=== PATIENT | female | born 1995 | race Two or more races ===

== ENCOUNTER 2016-08-02 17:01 | Inpatient (IN) | payer MEDICAID ==
--- NOTE | 2016-08-02 17:09 | EDPHY ---
H & P Stated Complaint: Collapsed right Lung sent by internal medicine Time Seen by Provider: 08/02/16 17:09 - Personal History LMP (Females 10-55): 15-21 Days Ago Current Tetanus/Diphtheria Vaccine: Yes Current Tetanus Diphtheria and Acellular Pertussis (TDAP): Yes - Medical/Surgical History Hx Asthma: Yes - Social History Smoking Status: Never smoked Constitutional: Initial Vital Signs Temperature (C) 36.3 C 08/02/16 17:06 Heart Rate 80 08/02/16 17:06 Respiratory Rate 16 08/02/16 17:06 Blood Pressure 109/77 08/02/16 17:06 O2 Sat (%) 94 08/02/16 17:06 O2 Delivery Mode Room Air O2 (L/minute) 2 Allergies/Adverse Reactions: No Known Allergies Allergy (Verified 08/02/16 17:49) Home Medications: Medication Instructions Recorded Albuterol [Proventil Inhaler HFA 1 - 2 puffs IH Q4H PRN 08/02/16 (*)] Medical Decision Making ED Course/Re-evaluation: CHIEF COMPLAINT: Dyspnea, pneumothorax HISTORY OF PRESENT ILLNESS: The patient is a 21 y/o female arriving at the recommendation of her primary care provider for 1 week of dyspnea and confirmed pneumothorax on x-ray today. She first noticed chest pain and difficulty breathing about one week ago. She developed associated coughing and her PCP placed her on an albuterol inhaler. She returned to her PCP's office today since her symptoms had not improved and a chest x-ray showed large right-sided pneumothorax. She cannot identify any obvious precipitating factors. She denies trauma or illness. She has no history of pneumothoraces and is otherwise healthy. Dr. Lao called the ED prior to patient arrival and stated patient can see the on-call surgeon. REVIEW OF SYSTEMS: A 10 point review of systems was performed and is negative with the exception of the elements mentioned in the history of present illness. PHYSICAL EXAM: HR, BP, O2 Sat, RR. Temp noted General Appearance: Alert, well hydrated, appropriate, and non-toxic appearing. Head: Atraumatic without scalp tenderness or obvious injury Eyes: Pupils equal, round, reactive to light and accommodation, EOMI, no trauma , no injection. Ears: Clear bilaterally, no perforation, normal landmarks Nose: Atraumatic, no rhinorrhea, clear. Throat: There is no erythema or exudates, no lesions, normal tonsils, mucus membranes moist. Neck: Supple,nontender, no lymphadenopathy. Trachea midline. Respiratory: No retractions, no distress, no wheezes, and no accessory muscle use. Decreased breath sounds on right side. Left side clear. Cardiovascular: Regular rate and rhythm, no murmurs, rubs, or gallops. Good capillary refill all extremities. Gastrointestinal: Abdomen is soft, nontender, non-distended, no masses, no rebound, no guarding, no peritoneal signs. Musculoskeletal: Normal active ROM of all extremities, atraumatic. Neurological: Alert, appropriate, and interactive. The patient has normal DTRs and non-focal cranial nerves, motor, sensory, and cerebellar exam. Skin: No rashes, good turgor, no nodules on palpation. Past medical history: Denies Past surgical history: Denies Family history: Noncontributory Social history: PCP: Dr. Bell (not [facility] [place] DIAGNOSTICS/PROCEDURES/CRITICAL CARE TIME: Reviewed chest x-ray from earlier today. She has a large right pneumothorax without evidence of tension. Her trachea is midline. Procedure: Conscious sedation. Indication: Chest tube placement I was asked by Dr. Girard to perform procedural sedation. The patient is an appropriate candidate to tolerate procedural sedation. The patient's vitals signs and mental status are appropriate. The risks, benefits and alternatives of the sedation were discussed with the patient. The patient is ASA classification 1. The patient's Mallampati airway score was 1 and the patient did meet the 3-3-2 airway measurements. A time out was completed. The patient was sedated with 130mg IV Propofol and 100mcg IV Fentanyl. The patient was monitored with continuous pulse oximetry, equipment monitor phototypesetting and end tidal CO2. There were no complications and no significant hypoxemia. I performed the sedation. Dr. Girard performed the procedure. The total time I spent at the bedside during the procedural sedation was 30 minutes. The patient was examined after the procedural sedation and has returned to their pre-sedation baseline with normal vital signs and a normal examination. Study: Chest x-ray Indication: post chest tube Results: Chest x-ray was obtained. The results of the study are good tube placement with lug reexpansion. Radiologist report pending. I viewed the images myself on the PACS system. DIFFERENTIAL DIAGNOSIS: The differential diagnosis for the patient's shortness of breath and hypoxemia included but was not limited to spontaneous pneumothorax, pneumonia, myocardial infarction, acute mountain sickness, high altitude pulmonary edema, congestive heart failure, and pulmonary embolus. MEDICAL DECISION MAKING: This is a well-appearing healthy 21 y/o female presenting with a 1-week history of shortness of breath, cough, and chest pain. She had a confirmed large right pneumothorax on x-ray today and was referred to the ED by Dr. Lao. She is not hypoxemic and is resting comfortably at this time. Surgeon paged. 1718: Consulted with Dr. Girard, surgeon. He will assess patient in the ED, though will wait to place chest tube until after a pending case. 1725: Dr. Girard will admit patient for pneumothorax and place chest tube later tonight. 1840: Prepared patient for conscious sedation preceding chest tube placement. 1850: Conscious sedation performed. Chest tube placed successfully by Dr. Girard. Departure - Departure Disposition: [facility] Inpatient Acute Clinical Impression: Pneumothorax, right Condition: Good Report Scribed for: Misael Cordoba Report Scribed by: Alida Park Date of Report: 08/02/16 Time of Report: 17:12
[2016-08-02] MEDS ORDERED: PROPOFOL 200 MG/20 ML VIAL ONE (17:38)
[2016-08-02] MEDS ORDERED: PROPOFOL/EMULSION 1,000 MG/100 ML BOTTLE IV ONE (18:42)
[2016-08-02] MEDS ORDERED: HYDROmorphONE/DILAUDID 1 MG/ML SYR ONE (19:11)
[2016-08-02] MEDS ORDERED: HYDROmorphONE/DILAUDID 1 MG/ML SYR IVP PRN (19:18)
[2016-08-02] MEDS ORDERED: fentaNYL 100 MCG/2 ML INJ IVP ONE ×2 (19:18→19:19)
[2016-08-02] MEDS ORDERED: PROPOFOL 200 MG/20 ML VIAL IVP ONE (19:18)
--- NOTE | 2016-08-02 20:13 | GHP ---
[f rep st] HISTORY AND PHYSICAL DATE OF ADMISSION: 08/02/2016 CHIEF COMPLAINT: Pneumothorax. HISTORY OF PRESENT ILLNESS: This is an otherwise healthy 21-year-old female who presents to the ED after being seen by her medical lead earlier today. The patient was originally evaluated initially 1 w [place] ago. She was felt to have some underlying asthma and/or bronchitis and was placed on an inhaler and an oral steroid. She first noticed chest pain and difficulty breathing at that time. She retu rned to her PCPs office today since the symptoms had not abated. A chest x-ray was performed which showed a large right-sided pneumothorax. The patient was subsequently presented here. Here in the emergency department she is stable having minimal sided chest pain and still saturating well on room air. On my evaluation, she identifies no precipitating factors and denies any trauma t o the chest or any other significant event which would have caused this. She has never had anything like this before in the past. PAST MEDICAL HISTORY: None. PAST SURGICAL HISTORY: None. CURRENT MEDICATIONS: Albuterol and oral steroids. REVIEW OF SYSTEMS: A full 10-point review was performed and, unless explicitly stated, is otherwise negative. PHYSICAL EXAMINATION: GENERAL: She is alert and oriented in no acute distress. VITAL SIGNS: Hear t rate is 90, blood pressure 107/79, temperature is 36.9. She is 99% on room air. LUNGS: Diminish ed on the right, normal on the left. CV: She has a regular rate and rhythm. ABDOMEN: Soft, nondi stended. EXTREMITIES: Warm. IMAGING: Chest x-ray showing a moderately large right-sided pneumothorax. ASSESSMENT AND PLAN: 21-year-old female with spontaneous pneumothorax. I discussed with the patient today given the large size of her pneumothorax that I recommend chest t ube thoracostomy placement. My plan will be to place this in the emergency department with an admis sunday overnight for at least 24 hours to monitor. If she has no air leak and continues to do well on water seal, likely remove the tube in 1-2 days at which point in time, she can go home. She unders tands this and wishes to proceed. /[id number]/MODL
--- NOTE | 2016-08-02 20:23 | GOP ---
[f rep st] OPERATIVE REPORT DATE OF OPERATION: 08/02/2016 SURGEON: Geovani Girard MD [employer] OPERATOR: None. ANESTHESIA: Conscious sedation with IV and local anesthetic performed by Misael Cordoba MD. PREOPERATIVE DIAGNOSIS: Large right-sided pneumothorax, spontaneous. POSTOPERATIVE DIAGNOSIS: Large right-sided pneumothorax, spontaneous. PROCEDURE PERFORMED: Right 28-Mongolian chest tube thoracostomy placement. FINDINGS: Successful placement, large whoosh of air upon entering the chest cavity. Patient tolerated procedure well. SPECIMENS: None. ESTIMATED BLOOD LOSS: 5 cc. DESCRIPTION OF PROCEDURE: DRAINS: 28-Mongolian straight chest tube. DESCRIPTION OF PROCEDURE IN DETAIL: Patient was greeted in the Emergency Department. After discussing the risks, benefits, and alternatives, consent was signed. Conscious sedation was then induced. The right chest was then prepped and draped in typical sterile fashion after a [employer] time-out was performed. After successful prepping and draping, I anesthetized the area using 1% lidocaine with epinephrine. I then made a small incision in the 5th intercostal space, tracked this through the intercostal space and entered the chest cavity bluntly. There were no adhesions. I successfully placed 28-Mongolian straight chest tube into the chest cavity with a large bradford of air upon entering. It was attached to the skin with an interrupted silk suture and then to a Pleur-evac. Patient tolerated the procedure well with no intraprocedural complications. /[id number]/MODL MTDD
[2016-08-02] MEDS ORDERED: ONDANSETRON 4 MG/2 ML VIAL IVP PRN (20:26)
[2016-08-02] MEDS ORDERED: ONDANSETRON DISINTEGRATING 4 MG TAB PO PRN (20:26)
[2016-08-02] MEDS ORDERED: ACETAMINOPHEN 325 MG TAB PO PRN (20:26)
[2016-08-02] MEDS ORDERED: D5W 1/2 NS W/ 20 KCl/L 1,000 ML IV SCH (20:30)
[2016-08-02] MEDS: HYDROCODONE/APAP 5/325 TAB PO PRN ×2 (20:45→23:12)
[2016-08-03] MEDS: HYDROmorphONE/DILAUDID 1 MG/ML SYR IVP PRN ×2 (00:32→04:00)
[2016-08-03] MEDS: HYDROCODONE/APAP 5/325 TAB PO PRN ×2 (03:55→10:06)
[2016-08-03] MEDS ORDERED: HYDROmorphONE/DILAUDID 1 MG/ML SYR IVP PRN (05:10)
[2016-08-03] MEDS ORDERED: NS 500 ML IV ONE (14:00)
[2016-08-03 20:05] VITALS: RESP 16
--- NOTE | 2016-08-03 23:37 | SOAPPROG ---
SOAP Progress Note Assessment/Plan: Assessment: HD #2 for spontaneous right pneumothorax Pulled chest tube Small residual pneumothorax Will recheck CXR in am If worsening will get CT and may need VATS if stable or improved, may dc home S: Feeling better. Pain controlled O: Sitting in bed, family at bedside Plan: 08/03/16 23:36 Objective: Vital Signs Temp Pulse Resp BP Pulse Ox 36.7 C 56 L 16 107/68 99 08/03/16 20:00 08/03/16 20:00 08/03/16 20:00 08/03/16 16:00 08/03/16 20:00 08/02/16 08/03/16 08/04/16 05:59 05:59 05:59 Intake Total 1500 1150 Output Total 35 Balance 1500 1115 Physical Exam - Physical Exam General Appearance: WD/WN, alert, no apparent distress EENT: PERRL/EOMI, normal ENT inspection Respiratory: lungs clear, normal breath sounds Cardiac/Chest: regular rate, rhythm ICD10 Worksheet Patient Problems: Problems Problem Status Onset Pneumothorax, right Acute
[2016-08-04 08:14] VITALS: BP 84/56; PULSE 72; TEMP 98.6; O2SAT 100
--- NOTE | 2016-08-04 11:37 | SOAPPROG ---
SOAP Progress Note Assessment/Plan: Assessment: HD #3 for spontaneous right pneumothorax Pulled chest tube Small residual pneumothorax - improved today DC home FU 1 week with chest x ray S: Feeling better. Pain controlled O: Sitting in bed, family at bedside Plan: 08/03/16 23:36 08/04/16 11:34 Objective: Vital Signs Temp Pulse Resp BP Pulse Ox 37.0 C 72 16 84/56 L 100 08/04/16 08:00 08/04/16 08:00 08/04/16 08:00 08/04/16 08:00 08/04/16 08:00 08/03/16 08/04/16 08/05/16 05:59 05:59 05:59 Intake Total 400 Balance 400 Physical Exam - Physical Exam General Appearance: WD/WN, alert, no apparent distress EENT: PERRL/EOMI, normal ENT inspection Respiratory: chest non-tender, lungs clear Cardiac/Chest: regular rate, rhythm ICD10 Worksheet Patient Problems: Problems Problem Status Onset Pneumothorax, right Acute
--- NOTE | 2016-08-08 07:03 | GDS ---
[f rep st] DISCHARGE SUMMARY REASON FOR ADMISSION: Charleen Rodriguez is a 21-year-old woman who presented due to chest pain and dif ficulty breathing. She had previously been treated for asthma and bronchitis and was sent to the em ergency room since her symptoms were not improving. She was found to have a large pneumothorax. PRIMARY DIAGNOSIS: Pneumothorax on the right side. OTHER PERTINENT DIAGNOSES: None. HOSPITAL COURSE: In the emergency room, a chest tube was placed. She was brought up to the floor. It was placed to water seal on hospital day #2. She had a small residual pneumothorax that had inc reased slightly in size. So, I elected to keep her 1 more day in the event that she had a bleb or a continuous air leak that would make the pneumothorax progress. On August 04, 2016, her chest x-ray showed slight improvement in the pneumothorax, and she was ready for discharge home. CONDITION ON DISCHARGE: 1. Ambulates independently. 2. Pain is well controlled. 3. Pneumothorax improved. She will follow up with Dr. Girard in 1 week with a repeat chest x-ray. /[id number]/MODL
== END 2016-08-04 12:45 | disposition home or self-care (01) | DRG 201 ==
LOC: F3N 20:08 → OBSVTOIN 08-03 23:36
PROVIDERS: ADMIT Surgery; ATTEND Surgery
PROC: 0W9930Z Drainage of Right Pleural Cavity with Drainage Device, Percutaneous Approach (ICD-10-PCS; principal; 2016-08-03)
DX: J93.83 Other pneumothorax (principal)
CPT/HCPCS: 96374; G0378; J1170; J2704

== ENCOUNTER → 2016-08-02 | Outpatient (CLI) | payer MEDICAID | LOC: BMCIMAGING 15:27 | PROVIDERS: ATTEND Internal Medicine | DX: J93.9 Pneumothorax, unspecified (principal); J45.909 Unspecified asthma, uncomplicated ==

== ENCOUNTER → 2016-08-09 | Outpatient (CLI) | payer MEDICAID | LOC: FIMAGING 14:25 | PROVIDERS: ATTEND Surgery | DX: Z09 Encounter for follow-up examination after completed treatment for conditions other than malignant neoplasm (principal); J93.83 Other pneumothorax ==

== ENCOUNTER 2016-08-30 16:36 | Emergency (ER) | payer MEDICAID ==
--- NOTE | 2016-08-30 17:13 | EDPHY ---
H & P Stated Complaint: stabbing intermittent cp here 08/02 for pneumothorax Time Seen by Provider: 08/30/16 16:48 HPI/ROS: CHIEF COMPLAINT: Chest pain HISTORY OF PRESENT ILLNESS: This is a 21-year-old female presenting to the emergency department, complaining of right anterior chest pain. Patient states she was seen here 3 weeks ago in the ED and admitted for several days for a spontaneous pneumothorax chest tube was placed per patient. Patient states had some right anterior chest pain onset yesterday with activity, denies any shortness of breath. Patient concerned for a recurrence of a the pneumothorax. REVIEW OF SYSTEMS: Constitutional: No fever no chills Eyes: No vision changes ENT: No sore throat Respiratory: No cough or shortness of breath Cardiac: Right anterior chest pain nonradiating Genitourinary: No urinary discomfort Musculoskeletal: No back pain Skin: No rash Neurological: No headache or dizziness Source: Patient - Personal History LMP (Females 10-55): 8-14 Days Ago Current Tetanus Diphtheria and Acellular Pertussis (TDAP): Yes - Medical/Surgical History Hx Asthma: Yes Hx Chronic Respiratory Disease: No Hx Diabetes: No Hx Cardiac Disease: No Hx Renal Disease: No Hx Cirrhosis: No Hx Alcoholism: No Hx HIV/AIDS: No Hx Splenectomy or Spleen Trauma: No Other PMH: Tension pneumo 08/02/16 - Social History Smoking Status: Never smoked - Physical Exam Exam: General Appearance: Alert, no distress. Eyes: Pupils equal and round no pallor or injection. ENT, Mouth: Mucous membranes moist. Respiratory: There are no retractions, lungs are clear to auscultation. Cardiovascular: Regular rate and rhythm. Chest is nontender on palpation Gastrointestinal: Abdomen is soft and nontender, Neurological: No focal deficits Skin: Warm and dry, no rashes. Musculoskeletal: Neck is supple nontender. Extremities: are symmetrical, full range of motion. Psychiatric: Patient is oriented X 3, there is no agitation. Constitutional: Initial Vital Signs Temperature (C) 36.8 C 08/30/16 16:37 Heart Rate 75 08/30/16 16:37 Respiratory Rate 14 08/30/16 16:37 Blood Pressure 123/75 H 08/30/16 16:37 O2 Sat (%) 95 08/30/16 16:37 O2 Delivery Mode Room Air Allergies/Adverse Reactions: No Known Allergies Allergy (Verified 08/02/16 17:49) Home Medications: Medication Instructions Recorded Albuterol [Proventil Inhaler HFA 1 - 2 puffs IH Q4H PRN 08/02/16 (*)] Acetaminophen [Tylenol 325mg (*)] 650 mg PO Q4HRS PRN #0 tab 08/04/16 Medical Decision Making - Diagnostics Imaging: Imaging Impressions Chest X-Ray 08/30/16 17:02 Impression: Normal chest. ED Course/Re-evaluation: Discussed plan of care: Chest x-ray 1739: Discussed x-ray results negative no pneumothorax noted 1744: Discharge home---> stable, discussed discharge instructions Differential Diagnosis: Differential diagnosis considered but not limited to pneumothorax, pleural effusion and pneumonia Departure - Departure Disposition: Home, Routine, Self-Care Clinical Impression: Right-sided chest wall pain Condition: Good Instructions: Chest Wall Pain (ED) Additional Instructions: 1. Decrease strenuous activity, you can take ibuprofen 600 mg every 6-8 hours as needed 2. If at any point time you feel symptoms have worsened such as: Increased chest pain, shortness of breath pain radiating to her back return to the emergency department Referrals: NONE *PRIMARY CARE P,. [Primary Care Provider] - As per Instructions [facility],. [Clinic] - As per Instructions
[2016-08-30 17:55] VITALS: BP 101/58; PULSE 68; RESP 20; TEMP 99; O2SAT 97
== END 2016-08-30 18:12 | disposition home or self-care (01) ==
DX: R07.89 Other chest pain (principal); J45.909 Unspecified asthma, uncomplicated